=== PATIENT | male | born 1950 | race Caucasian/White ===

== ENCOUNTER 2021-02-26 08:49 | Inpatient (IN) | payer OTHER, MEDICARE ==
[~2021-02-26] VITALS: Ht 182.9 cm; Wt 80.5 kg
[2021-02-26] MEDS ORDERED: LABETALOL 5MG/ML, 20ML IVPush ONE ×2 (09:00→09:30)
--- NOTE | 2021-02-26 09:00 | NUR ---
pt to ct w 2 rns, tech, co founder on monitor. as
[2021-02-26] MEDS ORDERED: LABETALOL 5MG/ML, 20ML ONE (09:07)
[2021-02-26] MEDS ORDERED: OMNIPAQUE 350 MG/ML, 100ML BOTTLE ONE (09:15)
--- NOTE | 2021-02-26 09:15 | NUR ---
0906 back in room 0910 labetalol 0914 sahm in room. R arm weak/drift no drift leg, dysarthria, facial droop, as
--- NOTE | 2021-02-26 09:19 | NUR ---
Code Neuro paged prior to patients arrival after [facility] pre-alert. Dr. Mims paged at 0900. Called back at 0902. Neurosurgery paged at 0913. Dr. Nicole called back at 0916.
[2021-02-26] MEDS ORDERED: PLEASE ENTER HEIGHT AND WEIGHT MC SCH (09:30)
[2021-02-26 09:49] LABS: BASOPHILS % (AUTO) 1 % (0-1); EOSINOPHILS % (AUTO) 2 % (1-7); LYMPHOCYTES % (AUTO) 17 % (22-44); MEAN CORPUSCULAR HEMOGLOBIN 30.6 pg (27.5-34.5); MEAN PLATELET VOLUME 8.6 fL (7.4-10.4); MONOCYTES % (AUTO) 9 % (2-9); NEUTROPHILS % (AUTO) 72 % (42-75); PLATELET COUNT 240 x10^3/uL (130-400); RED BLOOD COUNT 4.92 x10^6/uL (4.38-5.82); RED CELL DISTRIBUTION WIDTH 13.4 % (9.4-14.8)
[2021-02-26 09:50] LABS: MD NO
[2021-02-26 09:52] LABS: INTERNATIONAL NORMALIZED RATIO 1.08 (0.93-1.1); PROTHROMBIN TIME 11.5 Seconds (9.6-11.5)
[2021-02-26] MEDS ORDERED: OXYcodone IR 5MG TABLET PO PRN (10:00)
[2021-02-26] MEDS ORDERED: morphine SULFATE 10 MG/ML, 1ML IVPush PRN (10:00)
[2021-02-26] MEDS ORDERED: LORazepam 2 MG/ML, 1ML IVPush PRN (10:00)
[2021-02-26] MEDS ORDERED: SODIUM CHLORIDE FLUSH 10ML SYR IVF PRN (10:00)
[2021-02-26] MEDS ORDERED: BISACODYL 10 MG SUPP PR PRN (10:00)
[2021-02-26] MEDS ORDERED: POLYETHYLENE GLYCOL 17 GM PACKET PO PRN (10:00)
[2021-02-26] MEDS ORDERED: ACETAMINOPHEN 325 MG TABLET PO PRN (10:00)
[2021-02-26] MEDS ORDERED: LABETALOL 250 MG in SODIUM CHLORIDE 0.9% 200 ML IV PRN (10:00)
[2021-02-26] MEDS ORDERED: ONDANSETRON 2MG/ML, 2ML IVPush PRN (10:00)
--- NOTE | 2021-02-26 10:01 | NUR ---
LABETOLOL DRIP STARTED NOTED ON JAN PER ORDERS AND PROTOCOL
--- NOTE | 2021-02-26 10:05 | NUR ---
FAMILY AT BEDSIDE WITH ER MD. MD MADE AWARE DECREASE IN LOC AND RIGHT SIDED DRIFT NOW NOTED.
[2021-02-26] MEDS: SODIUM CHLORIDE 0.9% 1,000 ML IV SCH (10:19)
--- NOTE | 2021-02-26 10:26 | NUR ---
REPORT TO JONAS PIÑA. TO BE TRANSPORTED TO CCU
[2021-02-26] MEDS: ENALAPRILAT 1.25 MG/ML, 2ML IVPush PRN ×3 (11:04→22:08)
[2021-02-27] MEDS: ENALAPRILAT 1.25 MG/ML, 2ML IVPush PRN ×4 (04:12→15:48)
[2021-02-27 04:37] LABS: BASOPHILS % (AUTO) 1 % (0-1); EOSINOPHILS % (AUTO) 1 % (1-7); LYMPHOCYTES % (AUTO) 14 % (22-44); MD NO; MEAN CORPUSCULAR HEMOGLOBIN 30.7 pg (27.5-34.5); MEAN CORPUSCULAR HGB CONC 33.9 g/dL (33.2-36.2); MEAN PLATELET VOLUME 8.5 fL (7.4-10.4); MONOCYTES % (AUTO) 9 % (2-9); NEUTROPHILS % (AUTO) 75 % (42-75); PLATELET COUNT 257 x10^3/uL (130-400); RED BLOOD COUNT 4.73 x10^6/uL (4.38-5.82); RED CELL DISTRIBUTION WIDTH 13.6 % (9.4-14.8)
[2021-02-27] MEDS: SODIUM CHLORIDE 0.9% 1,000 ML IV SCH ×2 (04:47→16:09)
[2021-02-27 04:48] LABS: ANION GAP 7 mmol/L (5-15); CALCIUM 8.4 mg/dL (8.5-10.1); CHLORIDE 112 mmol/L (98-107)
[2021-02-27 04:49] LABS: CREATININE 1.05 mg/dL (0.7-1.3)
[2021-02-27] MEDS: SENNA/DOCUSATE TABLET PO SCH (08:38)
[2021-02-27] MEDS: CAPTOPRIL 12.5 MG TABLET PO SCH ×3 (10:17→21:07)
[2021-02-27] MEDS: hydrALAzine 20 MG/ML, 1ML IV PRN ×2 (11:13→14:05)
[2021-02-27 14:35] VITALS: BP 175/89
[2021-02-27 15:41] VITALS: BP 181/92
[2021-02-27] MEDS ORDERED: ENALAPRILAT 1.25 MG/ML, 1ML ONE (15:43)
[2021-02-27 16:12] VITALS: BP 150/85
[2021-02-27 18:36] VITALS: BP 142/90
[2021-02-27 21:06] VITALS: BP_SYST 182; BP_SYST 191; BP_DIAS 85; BP_DIAS 98
[2021-02-27] MEDS: ENALAPRILAT 1.25 MG/ML, 1ML IVPush PRN (21:31)
[2021-02-27 22:25] VITALS: BP_SYST 190; BP_SYST 192; BP_DIAS 100; BP_DIAS 82
[2021-02-27] MEDS: LABETALOL 5MG/ML, 20ML IVPush PRN (22:30)
[2021-02-28] VITALS (12 sets, daily range): BP systolic 111–196; BP diastolic 58–97
[2021-02-28] MEDS: hydrALAzine 20 MG/ML, 1ML IV PRN ×4 (00:29→18:17)
[2021-02-28] MEDS: AMLODIPINE 10 MG TAB PO SCH (08:50)
[2021-02-28] MEDS: CAPTOPRIL 12.5 MG TABLET PO SCH ×3 (08:51→20:42)
[2021-02-28] MEDS: SENNA/DOCUSATE TABLET PO SCH (08:53)
[2021-02-28] MEDS: SODIUM CHLORIDE 0.9% 1,000 ML IV SCH (10:56)
[2021-02-28] MEDS: DOXAZOSIN 2MG TABLET PO SCH (13:12)
[2021-02-28] MEDS: ENALAPRILAT 1.25 MG/ML, 1ML IVPush PRN (13:12)
[2021-02-28] MEDS ORDERED: ENALAPRILAT 1.25 MG/ML, 1ML IVPush PRN (14:00)
[2021-03-01] VITALS (14 sets, daily range): BP systolic 134–188; BP diastolic 70–90
[2021-03-01] MEDS: hydrALAzine 20 MG/ML, 1ML IV PRN (04:07)
[2021-03-01] MEDS: SPIRONOLACTONE 25 MG TABLET PO SCH ×2 (09:27→20:52)
[2021-03-01] MEDS: SENNA/DOCUSATE TABLET PO SCH (09:27)
[2021-03-01] MEDS: DOXAZOSIN 2MG TABLET PO SCH (09:27)
[2021-03-01] MEDS: AMLODIPINE 10 MG TAB PO SCH (09:27)
[2021-03-01] MEDS: CAPTOPRIL 12.5 MG TABLET PO SCH ×3 (09:28→20:52)
[2021-03-02 00:06] VITALS: BP 188/83
[2021-03-02 08:17] VITALS: BP 193/82
[2021-03-02] MEDS: SENNA/DOCUSATE TABLET PO SCH (09:00)
[2021-03-02] MEDS: AMLODIPINE 10 MG TAB PO SCH (10:54)
[2021-03-02] MEDS: SPIRONOLACTONE 25 MG TABLET PO SCH ×2 (10:54→20:54)
[2021-03-02] MEDS: LISINOPRIL 40 MG TABLET PO SCH ×2 (10:54→20:54)
[2021-03-02] MEDS: DOXAZOSIN 2MG TABLET PO SCH (10:55)
[2021-03-02 11:44] VITALS: BP 171/74
[2021-03-02] MEDS: hydrALAzine 20 MG/ML, 1ML IV PRN (12:31)
[2021-03-02 12:56] VITALS: BP 167/78
[2021-03-02 15:34] VITALS: BP 154/65
[2021-03-02 18:32] VITALS: BP 159/94
[2021-03-03 00:36] VITALS: BP 154/73
[2021-03-03] MEDS: hydrALAzine 20 MG/ML, 1ML IV PRN ×2 (01:51→06:20)
[2021-03-03 03:03] VITALS: BP 160/77
[2021-03-03] MEDS: LABETALOL 5MG/ML, 20ML IVPush PRN (03:37)
[2021-03-03 06:00] VITALS: BP 160/82
[2021-03-03] MEDS: DOXAZOSIN 2MG TABLET PO SCH (10:15)
[2021-03-03] MEDS: SPIRONOLACTONE 25 MG TABLET PO SCH (10:15)
[2021-03-03] MEDS: AMLODIPINE 10 MG TAB PO SCH (10:16)
[2021-03-03] MEDS: LISINOPRIL 40 MG TABLET PO SCH (10:16)
[2021-03-03] MEDS: SENNA/DOCUSATE TABLET PO SCH (10:16)
[2021-03-03 10:18] VITALS: BP 150/66
[2021-03-03] MEDS ORDERED: AMLO-211 PO (11:18)
[2021-03-03] MEDS ORDERED: DOXA2TAB9 PO (11:18)
[2021-03-03] MEDS ORDERED: LISI40TA9 PO (11:18)
[2021-03-03] MEDS ORDERED: SPIR25TA PO (11:18)
[2021-03-03] MEDS ORDERED: HYDR-3341 PO (11:18)
== END 2021-03-03 14:20 | DRG 64 ==
LOC: ED 09:55 → EDIP 09:59 → CCU 10:42 → 4EST 02-27 14:28
PROVIDERS: ADMIT Internal Medicine; ATTEND Internal Medicine
DX: I61.5 Nontraumatic intracerebral hemorrhage, intraventricular (principal); I63.512 Cerebral infarction due to unspecified occlusion or stenosis of left middle cerebral artery; I63.233 Cerebral infarction due to unspecified occlusion or stenosis of bilateral carotid arteries; I63.212 Cerebral infarction due to unspecified occlusion or stenosis of left vertebral artery; I16.9 Hypertensive crisis, unspecified; G81.91 Hemiplegia, unspecified affecting right dominant side; I50.32 Chronic diastolic (congestive) heart failure; R47.01 Aphasia; I61.8 Other nontraumatic intracerebral hemorrhage; I11.0 Hypertensive heart disease with heart failure; I73.9 Peripheral vascular disease, unspecified; R13.10 Dysphagia, unspecified; R29.810 Facial weakness; Z82.49 Family history of ischemic heart disease and other diseases of the circulatory system; R29.707 NIHSS score 7; R47.1 Dysarthria and anarthria
CPT/HCPCS: 36415; 70450; 70496; 70498; 71045; 80047; 80048; 85025; 85610; 85730; 87081; 93005; 93306; 93975; 96374; G0378; Q9967; J0360; J7030; J7050